=== PATIENT | female | born 2005 | race Two or more races ===

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

== ENCOUNTER 2023-02-26 12:53 | Emergency (ER) | payer OTHER ==
[~2023-02-26] VITALS: Ht 157.5 cm; Wt 59.0 kg
== END 2023-02-26 14:50 | disposition home or self-care (01) ==
LOC: ER 12:53 → EMR PED 12:54
DX: L03.115 Cellulitis of right lower limb (principal)

== ENCOUNTER 2023-05-07 14:59 | Emergency (ER) | payer OTHER ==
[~2023-05-07] VITALS: Ht 152.4 cm; Wt 68.0 kg
== END 2023-05-07 21:36 | disposition home or self-care (01) ==
LOC: ER 15:00 → EMR PED 15:18 → ER 15:18 → EMR PED 21:36
DX: N39.0 Urinary tract infection, site not specified (principal); Z91.013 Allergy to seafood; E16.1 Other hypoglycemia
CPT/HCPCS: 96365; 99284; J0696

== ENCOUNTER → 2024-07-16 | Emergency (ER) | payer OTHER ==
[~2024-07-16] VITALS: Ht 152.4 cm; Wt 68.0 kg
== END | disposition left against medical advice (07) ==
LOC: ER 01:19
DX: Z53.21 Procedure and treatment not carried out due to patient leaving prior to being seen by health care provider (principal)